=== PATIENT | female | born 1945 | race Caucasian/White ===

== ENCOUNTER 2025-05-07 13:52 | Outpatient (CLI) | payer MEDICARE | END 2025-05-07 13:53 | disposition home or self-care (01) | LOC: BICRAD 13:52 | PROVIDERS: ATTEND Nurse Practitioner Family | DX: M79.642 Pain in left hand (principal); Z13.1 Encounter for screening for diabetes mellitus; Z13.29 Encounter for screening for other suspected endocrine disorder; Z13.6 Encounter for screening for cardiovascular disorders; E56.9 Vitamin deficiency, unspecified; R73.9 Hyperglycemia, unspecified; Z79.899 Other long term (current) drug therapy | CPT/HCPCS: 36415; 80053; 80061; 82306; 82728; 83036; 83540; 83550; 84439; 84443; 85025 ==

== ENCOUNTER 2025-08-25 08:32 | Inpatient (IN) | payer MEDICARE, MEDICAID ==
[2025-08-25 11:42] LABS: #Basophils 0.04 10x3/uL (0.0-0.2); #Eosinophils 0.03 10x3/uL (0.0-0.7); #Monocytes 0.59 10x3/uL (0.11-0.59); #Neutrophils 10.20 10x3/uL (1.40-6.50); %Basophils 0.3 % (0.0-1.0); %Eosinophils 0.3 % (0.0-10.0); %Lymphocytes 9.0 % (21.0-51.0); %Monocytes 4.9 % (0.0-10.0); %Neutrophils 85.2 % (42.0-75.0); Hematocrit 47.3 % (36.0-47.0); Hemoglobin 15.1 g/dL (12.0-16.0); Mean Corpuscular Hemoglobin 30.3 pg (27.0-31.0); Mean Corpuscular Volume 95.0 fL (78.0-98.0); Platelet Count 185 10x3/uL (130-400); Red Blood Cell (RBC) Count 4.98 mill/uL (4.20-5.40); White Blood Cell (WBC) Count 11.97 10x3/uL (4.8-10.8)
[2025-08-25 11:57] LABS: ALT (SGPT) 8 U/L (Less than 34); AST (SGOT) 15 U/L (11-34); Albumin 3.3 g/dL (3.1-4.5); Alkaline Phosphatase 102 U/L (40-110); Anion Gap 15 mmol/L (10-20); BUN (Urea Nitrogen) 19 mg/dL (9.8-20.1); Bilirubin, Total 0.3 mg/dL (0.3-1.2); Calc. Creatinine Clearance 0 mL/min (70-130); Calcium 10.6 mg/dL (7.8-10.44); Carbon Dioxide 20 mmol/L (23-31); Chloride 112 mmol/L (98-107); Globulin 2.8 g/dL (2.4-3.5); Glucose 109 mg/dL (83-110); Lipase 18 U/L (8-78); Potassium 3.7 mmol/L (3.5-5.1); Sodium 143 mmol/L (136-145)
[2025-08-25] MEDS ORDERED: Ondansetron PF 4 MG/2 ML Vial ONE (15:10)
[2025-08-25] MEDS ORDERED: cefTRIAXone (ROCEPHIN) 2 GM VIAL ONE (15:11)
[2025-08-25] MEDS ORDERED: metroNIDAZOLE 500 MG (100 mL) BAG ONE (15:11)
[2025-08-25] MEDS ORDERED: Acetaminophen 325 MG TAB PO PRN (15:52)
[2025-08-25] MEDS: HYDROcodone/Acetaminophen 5/325 mg Tablet PO PRN (18:47)
[2025-08-25 19:34] VITALS: BMI 16.1
[2025-08-25] MEDS: Senokot S 8.6-50 MG TAB PO SCH (20:44)
[2025-08-26] MEDS: cloNIDine 0.1 MG TAB PO SCH (01:06)
[2025-08-26 05:45] LABS: Anion Gap 16 mmol/L (10-20); BUN (Urea Nitrogen) 12 mg/dL (9.8-20.1); Calc. Creatinine Clearance 39 mL/min (70-130); Calcium 10.5 mg/dL (7.8-10.44); Carbon Dioxide 19 mmol/L (23-31); Chloride 112 mmol/L (98-107); Glucose 75 mg/dL (83-110); Potassium 4.5 mmol/L (3.5-5.1); Sodium 142 mmol/L (136-145)
[2025-08-26 05:50] LABS: Hematocrit 46.1 % (36.0-47.0); Hemoglobin 14.7 g/dL (12.0-16.0); Mean Corpuscular Hemoglobin 30.5 pg (27.0-31.0); Mean Corpuscular Volume 95.6 fL (78.0-98.0); Platelet Count 283 10x3/uL (130-400); Red Blood Cell (RBC) Count 4.82 mill/uL (4.20-5.40); White Blood Cell (WBC) Count 11.96 10x3/uL (4.8-10.8)
[2025-08-26 05:56] LABS: #Basophils 0.04 10x3/uL (0.0-0.2); #Eosinophils 0.19 10x3/uL (0.0-0.7); #Monocytes 0.98 10x3/uL (0.11-0.59); #Neutrophils 8.87 10x3/uL (1.40-6.50); %Basophils 0.3 % (0.0-1.0); %Eosinophils 1.6 % (0.0-10.0); %Lymphocytes 16.2 % (21.0-51.0); %Monocytes 8.1 % (0.0-10.0); %Neutrophils 73.6 % (42.0-75.0)
[2025-08-26] MEDS: Pantoprazole 40 MG DR.TAB PO SCH (09:00)
[2025-08-26] MEDS: Aspirin 81 mg Enteric Coated Tablet PO SCH (09:00)
[2025-08-26] MEDS ORDERED: CHOLECALCIFEROL 1250 MCG PO SCH (12:45)
[2025-08-26] MEDS: Ergocalciferol 1.25 MG(50,000 UNITS) CAP PO SCH (13:31)
[2025-08-26] MEDS: cefTRIAXone\\ROCEPHIN 2 GM in Sodium Chloride 0.9% 100 ML IVPB SCH (16:21)
[2025-08-27 06:47] LABS: #Basophils 0.06 10x3/uL (0.0-0.2); #Eosinophils 0.33 10x3/uL (0.0-0.7); #Monocytes 0.65 10x3/uL (0.11-0.59); #Neutrophils 6.96 10x3/uL (1.40-6.50); %Basophils 0.6 % (0.0-1.0); %Eosinophils 3.3 % (0.0-10.0); %Lymphocytes 19.7 % (21.0-51.0); %Monocytes 6.5 % (0.0-10.0); %Neutrophils 69.8 % (42.0-75.0); Hematocrit 41.1 % (36.0-47.0); Hemoglobin 13.0 g/dL (12.0-16.0); Mean Corpuscular Hemoglobin 30.5 pg (27.0-31.0); Mean Corpuscular Volume 96.5 fL (78.0-98.0); Platelet Count 257 10x3/uL (130-400); Red Blood Cell (RBC) Count 4.26 mill/uL (4.20-5.40); White Blood Cell (WBC) Count 9.97 10x3/uL (4.8-10.8)
[2025-08-27 07:14] LABS: ALT (SGPT) Less than 7 U/L (Less than 34); AST (SGOT) 10 U/L (11-34); Albumin 2.6 g/dL (3.1-4.5); Alkaline Phosphatase 85 U/L (40-110); Anion Gap 11 mmol/L (10-20); BUN (Urea Nitrogen) 9 mg/dL (9.8-20.1); Bilirubin, Total 0.2 mg/dL (0.3-1.2); Calc. Creatinine Clearance 39 mL/min (70-130); Calcium 10.3 mg/dL (7.8-10.44); Carbon Dioxide 22 mmol/L (23-31); Chloride 109 mmol/L (98-107); Globulin 2.6 g/dL (2.4-3.5); Glucose 72 mg/dL (83-110); Magnesium 1.8 mg/dL (1.6-2.6); Potassium 3.7 mmol/L (3.5-5.1); Sodium 138 mmol/L (136-145)
[2025-08-27] MEDS: Lisinopril 20 MG TAB PO SCH (08:41)
[2025-08-27] MEDS: Cyanocobalamin (Vitamin B-12) 1,000 MCG TAB PO SCH (08:42)
[2025-08-27] MEDS ORDERED: Non-Formulary Item 1 EACH (Cyanocobalamin (Vitamin B-12) [Vitamin B12] 2,500 MCG Tab.Chew PO SCH (09:00)
[2025-08-27] MEDS ORDERED: Non-Formulary Item 1 EACH (Benazepril Hcl [Benazepril Hcl] 20 MG Tablet) PO SCH (09:00)
[2025-08-27] MEDS ORDERED: Albuterol 1.25 MG (3 mL) NEB NEB PRN (17:16)
[2025-08-27] MEDS ORDERED: Albuterol 200 PUFF INH INH PRN (17:16)
[2025-08-27] MEDS ORDERED: Nitroglycerin 0.4 MG TAB (25 Tab Bottle) SL PRN (17:16)
[2025-08-28 06:17] LABS: #Basophils 0.05 10x3/uL (0.0-0.2); #Eosinophils 0.19 10x3/uL (0.0-0.7); #Monocytes 0.72 10x3/uL (0.11-0.59); #Neutrophils 6.69 10x3/uL (1.40-6.50); %Basophils 0.5 % (0.0-1.0); %Eosinophils 2.0 % (0.0-10.0); %Lymphocytes 18.7 % (21.0-51.0); %Monocytes 7.6 % (0.0-10.0); %Neutrophils 71.0 % (42.0-75.0); Hematocrit 37.6 % (36.0-47.0); Hemoglobin 11.9 g/dL (12.0-16.0); Mean Corpuscular Hemoglobin 30.1 pg (27.0-31.0); Mean Corpuscular Volume 94.9 fL (78.0-98.0); Platelet Count 292 10x3/uL (130-400); Red Blood Cell (RBC) Count 3.96 mill/uL (4.20-5.40); White Blood Cell (WBC) Count 9.43 10x3/uL (4.8-10.8)
[2025-08-28 06:40] LABS: ALT (SGPT) Less than 7 U/L (Less than 34); AST (SGOT) 10 U/L (11-34); Albumin 2.6 g/dL (3.1-4.5); Alkaline Phosphatase 80 U/L (40-110); Anion Gap 9 mmol/L (10-20); BUN (Urea Nitrogen) 8 mg/dL (9.8-20.1); Bilirubin, Total 0.1 mg/dL (0.3-1.2); Calc. Creatinine Clearance 39 mL/min (70-130); Calcium 10.4 mg/dL (7.8-10.44); Carbon Dioxide 24 mmol/L (23-31); Chloride 108 mmol/L (98-107); Globulin 2.6 g/dL (2.4-3.5); Glucose 100 mg/dL (83-110); Magnesium 1.9 mg/dL (1.6-2.6); Potassium 3.6 mmol/L (3.5-5.1); Sodium 137 mmol/L (136-145)
[2025-08-28] MEDS: Aspirin Chewable 81 MG TAB PO SCH (08:43)
[2025-08-28] MEDS: Pantoprazole 40 MG DR.TAB PO SCH (08:43)
[2025-08-28 15:29] VITALS: BMI 16.1
[2025-08-29 06:46] LABS: #Basophils 0.06 10x3/uL (0.0-0.2); #Eosinophils 0.25 10x3/uL (0.0-0.7); #Monocytes 0.70 10x3/uL (0.11-0.59); #Neutrophils 4.67 10x3/uL (1.40-6.50); %Basophils 0.8 % (0.0-1.0); %Eosinophils 3.2 % (0.0-10.0); %Lymphocytes 27.3 % (21.0-51.0); %Monocytes 8.9 % (0.0-10.0); %Neutrophils 59.7 % (42.0-75.0); Hematocrit 40.4 % (36.0-47.0); Hemoglobin 12.9 g/dL (12.0-16.0); Mean Corpuscular Hemoglobin 30.5 pg (27.0-31.0); Mean Corpuscular Volume 95.5 fL (78.0-98.0); Platelet Count 272 10x3/uL (130-400); Red Blood Cell (RBC) Count 4.23 mill/uL (4.20-5.40); White Blood Cell (WBC) Count 7.83 10x3/uL (4.8-10.8)
[2025-08-29 07:05] LABS: ALT (SGPT) Less than 7 U/L (Less than 34); AST (SGOT) 11 U/L (11-34); Albumin 2.8 g/dL (3.1-4.5); Alkaline Phosphatase 87 U/L (40-110); Anion Gap 12 mmol/L (10-20); BUN (Urea Nitrogen) 4 mg/dL (9.8-20.1); Bilirubin, Total 0.2 mg/dL (0.3-1.2); Calc. Creatinine Clearance 41 mL/min (70-130); Calcium 10.6 mg/dL (7.8-10.44); Carbon Dioxide 27 mmol/L (23-31); Chloride 106 mmol/L (98-107); Globulin 2.7 g/dL (2.4-3.5); Glucose 87 mg/dL (83-110); Magnesium 1.9 mg/dL (1.6-2.6); Potassium 3.5 mmol/L (3.5-5.1); Sodium 141 mmol/L (136-145)
[2025-08-29] MEDS ORDERED: Lidocaine 1% PF 5 ML VIAL ONE (08:19)
[2025-08-29] MEDS ORDERED: Ondansetron PF 4 MG/2 ML Vial ONE (08:19)
[2025-08-29] MEDS ORDERED: Rocuronium Bromide 10 MG/ML (10ML VIAL) ONE (08:36)
[2025-08-29] MEDS ORDERED: PROPOFOL 200 MG/20 ML VIAL ONE (08:36)
[2025-08-29] MEDS ORDERED: SUGAMMADEX SODIUM 200 MG/2 ML VIAL ONE (09:16)
[2025-08-29] MEDS: FLU (Fluad Triv) 25-26 (65UP)PF 45 MCG/0.5 ML Syringe IM ONE (09:33)
[2025-08-30 09:05] VITALS: BP 130/80; TEMP 98.3
== END 2025-08-30 12:21 | disposition home or self-care (01) | DRG 853 ==
LOC: ERS 08:32 → T4-B 15:06
PROVIDERS: ADMIT Family Medicine; ATTEND Internal Medicine
PROC: 3E03329 Introduction of Other Anti-infective into Peripheral Vein, Percutaneous Approach (ICD-10-PCS; 2025-08-25)
PROC: 0DBL0ZZ Excision of Transverse Colon, Open Approach (ICD-10-PCS; principal; 2025-08-29)
DX: A41.9 Sepsis, unspecified organism (principal); E43 Unspecified severe protein-calorie malnutrition; K94.03 Colostomy malfunction; Z68.1 Body mass index [BMI] 19.9 or less, adult; K52.89 Other specified noninfective gastroenteritis and colitis; Z87.19 Personal history of other diseases of the digestive system; J44.9 Chronic obstructive pulmonary disease, unspecified; I25.10 Atherosclerotic heart disease of native coronary artery without angina pectoris; Z95.818 Presence of other cardiac implants and grafts; I73.9 Peripheral vascular disease, unspecified; K21.9 Gastro-esophageal reflux disease without esophagitis; I10 Essential (primary) hypertension; Z98.890 Other specified postprocedural states; Z91.041 Radiographic dye allergy status; R22.1 Localized swelling, mass and lump, neck; Z91.09 Other allergy status, other than to drugs and biological substances; Z79.899 Other long term (current) drug therapy; Z79.82 Long term (current) use of aspirin; Z95.5 Presence of coronary angioplasty implant and graft; Z98.891 History of uterine scar from previous surgery; E87.6 Hypokalemia; E83.42 Hypomagnesemia; D53.9 Nutritional anemia, unspecified; Z88.1 Allergy status to other antibiotic agents
CPT/HCPCS: 36415; 36416; 74176; 80048; 80053; 83605; 83690; 83735; 85025; 87040; 88304; 93880; 96365; 96375; J0169; J0696; J2270; J2272; J2405; J2704; J3010; J7120